=== PATIENT | female | born 1980 | race Caucasian/White ===

== ENCOUNTER → 2018-12-06 14:37 | Outpatient (CLI) | payer OTHER, SELFPAY ==
[2018-12-06 13:45] VITALS: BMI 29.9
[2018-12-06 15:07] LABS: Absolute Lymphocyte Count 2.24 X10^3/ul (0.83-4.51); Absolute Neutrophil Count 7.5 X10^3/uL (2.0-7.7); Basophil# 0.02 X10^3/uL; Basophil% 0.2 % (0-1); Eosinophil# 0.06 X10^3/uL; Eosinophils% 0.6 % (0-5); Hematocrit 36.3 % (37-47); Hemoglobin 11.8 g/dl (12.0-15.0); Lymphocyte # 2.24 X10^3/ul (4.0); Lymphocyte % 21.4 % (19-41); Mean Corp Hgb Conc 32.5 g/gl (32-36); Mean Corpuscular Hgb 28.5 pg (27.0-32.0); Mean Corpuscular Volume 87.7 fL (81-99); Monocyte# 0.64 X10^3/uL; Monocyte% 6.1 % (0-10); Neutrophil # 7.51 X10^3/uL (2.7-7.7); Neutrophil % 71.5 % (47-70); POSITIVE COUNT NO; POSITIVE DIFFERENTIAL NO; POSITIVE MORPHOLOGY NO; Platelet Count 330 K/mm3 (150-450); RBC Distribution Width CV 14.3 % (11.6-14.6); RBC Distribution Width SD 46.2 fl (35.1-43.9); Red Blood Count 4.14 M/mm3 (4.2-5.4); White Blood Count 10.5 K/mm3 (4.4-11.0)
[2018-12-06 15:34] LABS: AST(SGOT) 15 U/L (15-37); Alanine Aminotransfer ALT/SGPT 24 U/L (13-56); Albumin, Serum 3.7 g/dL (3.2-5.0); Alkaline Phosphatase 48 U/L (45-117); Anion Gap 9 (5-15); BUN 9 mg/dL (7-18); Calcium,Total 8.9 mg/dL (8.5-10.1); Chloride 107 mmol/L (98-107); EST Glomerular Filtration Rate 117 mL/min (>60); Est Glom Filt Rate - Afr Amer 142 mL/min (>60); Globulin 3.8 g/dL (2.2-4.2); Glucose 100 mg/dL (74-106); Potassium 3.5 mmol/L (3.5-5.1); Protein, Total 7.5 g/dL (6.4-8.2); Sodium Level 139 mmol/L (136-145)
[2018-12-06 16:20] LABS: HIV - WCH Non-Reactive (Nonreactive); Rubella IgG 35.3 IU/mL
[2018-12-06 21:56] LABS: Chlamydia Trachomatis by PCR Negative (Negative); Neisserai gonorrhoeae by PCR Negative (Negative); Probe Check PASS; Sample Adequacy Control PASS; Specimen Processing Control PASS
[2018-12-08 13:12] LABS: HEPATITIS B SURFACE AG Negative (Negative)
[2018-12-09 02:05] LABS: Rapid Plasmin Reagin (RPR) NONREACTIVE (NONREACTIVE)
[2018-12-10 16:59] LABS: HPV APTIMA, High Risk Negative (Negative)
== END ==
PROVIDERS: Referring Provider Obstetrics & Gynecology; Visit Provider Obstetrics & Gynecology
DX: O09.511 Supervision of elderly primigravida, first trimester (principal); O16.9 Unspecified maternal hypertension, unspecified trimester; Z3A.00 Weeks of gestation of pregnancy not specified; Z12.4 Encounter for screening for malignant neoplasm of cervix
CPT/HCPCS: 36415; 80053; 85025; 86592; 86703; 86762; 86850; 86900; 87086; 87088; 87340; 87491; 87591; 87624; 88175; G0145

== ENCOUNTER → 2018-12-12 17:02 | Outpatient (CLI) | payer OTHER, SELFPAY ==
[2018-12-12 16:31] VITALS: BMI 29.7
[2018-12-12 19:17] LABS: Protein, Urine (Random) 6.8 mg/dL (<11.9); Protein:Creat Ratio 75 mg/g CRE (0-200)
== END ==
PROVIDERS: Referring Provider Obstetrics & Gynecology; Visit Provider Obstetrics & Gynecology
DX: O16.1 Unspecified maternal hypertension, first trimester (principal); Z3A.00 Weeks of gestation of pregnancy not specified
CPT/HCPCS: 82570; 84156

== ENCOUNTER → 2019-01-06 09:14 | Outpatient (CLI) | payer OTHER, SELFPAY ==
[2018-12-06 13:45] VITALS: BMI 29.9
[2018-12-12 16:31] VITALS: BMI 29.7
--- NOTE | 2019-01-06 09:16 | US_ITS ---
STUDY: ULTRASOUND BREAST - RIGHT REASON FOR EXAM: Female, 38 years old. Palpable lump in the right breast. The patient is . TECHNIQUE: Axial and longitudinal images of the RIGHT breast were performed with a high resolution ultrasound transducer. COMPARISON: None. FINDINGS: RIGHT Breast: The upper outer quadrant of the right breast was examined. There is heterogeneous fibroglandular tissue. Mildly dilated retroareolar ducts. There is a 1 cm x 0.6 cm x 0.4 cm hypoechoic nodule with a central echogenic hilum suggestive of a benign lymph node at the 11:00 position in the breast at 4 cm from the nipple. US/Breast Limited Unilateral IMPRESSION: Findings suggestive of a small benign-appearing right axillary lymph node. ASSESSMENT CATEGORY: BIRADS Category 2: Benign. A letter regarding these results will be sent to the patient by the facility within 30 days. Electronically Signed: Pierce Wang, at 11:01 EDT , Service support ,
== END ==
PROVIDERS: Referring Provider Obstetrics & Gynecology; Visit Provider Obstetrics & Gynecology
DX: N63.11 Unspecified lump in the right breast, upper outer quadrant (principal)
CPT/HCPCS: 76642

== ENCOUNTER → 2019-04-21 15:15 | Outpatient (CLI) | payer MEDICAID, OTHER, SELFPAY ==
[2019-03-30 16:42] VITALS: BMI 29.7
[2019-04-21 14:25] VITALS: BMI 30.9
--- NOTE | 2019-04-21 15:28 | US_ITS ---
STUDY: SECOND AND THIRD TRIMESTER OBSTETRICAL ULTRASOUND - LIMITED REASON FOR EXAM: Female, 38 years old. Placenta check. Placenta was low-lying on anatomy scan. LMP: The provided ADAM of July 09, 2019. PRIOR ULTRASOUND: None. TECHNIQUE: Transabdominal and Transvaginal TECHNICAL QUALITY: Adequate. FINDINGS: There is a single intrauterine fetus. The fetus is in a variable presentation. There is demonstrated cardiac activity with a heart rate of 139 bpm. There is a normal amniotic fluid volume. The largest amniotic fluid pocket measures 3.61 cm. The amniotic fluid index (SHALONDA) is 9.41 cm. The placenta is fundal and posterior and not low-lying. The inferior end of the placenta lies 4.5 cm posterior to the internal os. There are Grade 0 placental changes. The cervix measures 4.3 cm cm in length. age by prior US: 20 weeks, 5 days. ADAM by prior US: July 09, 2019. US/OB Limited (No Biometrics) IMPRESSION: 1. Live single intrauterine in the variable presentation. 2. heart rate 139 bpm. 3. Fundal and posterior grade 0 placenta. The inferior edge of the placenta lies 4.5 cm away from the internal os. 4. Close cervix at 4.3 cm. 5. SHALONDA of 9.41 cm. Electronically Signed: Krystian Hanks DO at 19:23 EDT Tel [phone], Service support ,
[2019-04-21 15:39] LABS: Absolute Lymphocyte Count 1.97 X10^3/uL (0.83-4.51); Absolute Neutrophil Count 8.6 X10^3/uL (2.0-7.7); Basophil# 0.03 X10^3/uL; Basophil% 0.3 % (0-1); Eosinophil# 0.16 X10^3/uL; Eosinophils% 1.4 % (0-5); Hematocrit 32.3 % (37-47); Hemoglobin 10.1 g/dL (12.0-15.0); Lymphocyte # 1.97 X10^3/ul (4.0); Lymphocyte % 17.2 % (19-41); Mean Corp Hgb Conc 31.3 g/dL (32-36); Mean Corpuscular Hgb 28.1 pg (27.0-32.0); Mean Platelet Vol. 10.2 fl (6.2-12.0); Monocyte# 0.62 X10^3/uL; Monocyte% 5.4 % (0-10); NRBC Flagged by Analyzer 0 % (0-5); Neutrophil % 75.1 % (47-70); Platelet Count 311 K/mm3 (150-450); RBC Distribution Width CV 13.9 % (11.6-14.6); RBC Distribution Width SD 45.4 fl (35.1-43.9); Red Blood Count 3.59 M/mm3 (4.2-5.4); White Blood Count 11.5 K/mm3 (4.4-11.0)
[2019-04-21 15:50] LABS: Glucose Challenge Gest 1H 50g 146 mg/dL (70-140)
== END ==
PROVIDERS: Referring Provider Obstetrics & Gynecology; Visit Provider Obstetrics & Gynecology
DX: O09.90 Supervision of high risk pregnancy, unspecified, unspecified trimester (principal); O44.42 Low lying placenta NOS or without hemorrhage, second trimester; Z3A.00 Weeks of gestation of pregnancy not specified
CPT/HCPCS: 36415; 76815; 76817; 82950; 85025

== ENCOUNTER → 2019-04-28 09:38 | Outpatient (CLI) | payer MEDICAID, OTHER, SELFPAY ==
[2019-04-21 14:25] VITALS: BMI 30.9
[2019-04-28 10:42] LABS: Glucose GTT-Gestation. Fasting 87 mg/dL (<105)
[2019-04-28 11:32] LABS: Glucose GTT-Gestational 1 Hr 128 mg/dL (<190)
[2019-04-28 12:47] LABS: Glucose GTT-Gestational 2 Hr 173 mg/dL (<165)
[2019-04-28 13:30] LABS: Glucose GTT-Gestational 3 Hr 199 L (<145)
== END ==
PROVIDERS: Referring Provider Obstetrics & Gynecology; Visit Provider Obstetrics & Gynecology
DX: O99.810 Abnormal glucose complicating pregnancy (principal); Z3A.00 Weeks of gestation of pregnancy not specified
CPT/HCPCS: 36415; 82951; 82952

== ENCOUNTER 2019-05-18 17:30 | Outpatient (RCR) | payer OTHER, MEDICAID, SELFPAY ==
[2019-04-21 14:25] VITALS: BMI 30.9
== END 2019-05-20 23:59 ==
LOC: DC 17:30
PROVIDERS: Visit Provider Obstetrics & Gynecology
DX: O24.419 Gestational diabetes mellitus in pregnancy, unspecified control (principal)
CPT/HCPCS: 97802; G0108

== ENCOUNTER 2019-05-24 13:00 | Outpatient (RCR) | payer OTHER, MEDICAID, SELFPAY ==
[2019-05-19 15:54] VITALS: BMI 30.9
== END 2019-05-24 23:59 | disposition home or self-care (01) ==
LOC: DC 13:00
PROVIDERS: Visit Provider Obstetrics & Gynecology
DX: O24.419 Gestational diabetes mellitus in pregnancy, unspecified control (principal); Z71.3 Dietary counseling and surveillance; Z3A.00 Weeks of gestation of pregnancy not specified

== ENCOUNTER → 2019-06-15 13:48 | Outpatient (CLI) | payer OTHER, MEDICAID, SELFPAY ==
[2019-05-05 16:32] VITALS: BMI 30.9
[2019-06-01 16:40] VITALS: BMI 30.9
--- NOTE | 2019-06-15 13:50 | US_ITS ---
STUDY: SECOND AND THIRD TRIMESTER OBSTETRICAL ULTRASOUND REASON FOR EXAM: Female, 38 years old assess growth. LMP: 10/01/2018 TECHNIQUE: Transabdominal. TECHNICAL QUALITY: Adequate. PRIOR ULTRASOUND: None. FINDINGS: There is a single intrauterine fetus. The fetus is in a cephalic presentation. There is demonstrated cardiac activity with a heart rate of 157 bpm. There is a normal amniotic fluid volume. The largest amniotic fluid pocket measures 4.6 cm. The amniotic fluid index (SHALONDA) is 12.9 cm. The placenta is posterior, no evidence of abruption or previa. There are Grade 2 placental changes. The maternal cervix is not visible. BIOMETRY: BPD: 8.8 cm: 35 weeks, 4 days HC: 32.0 cm: 36 weeks, 0 days AC: 31.5 cm: 35 weeks, 2 days FL: 7.1 cm: 36 weeks, 1 days OFD 11.1 cm: 35 weeks 6 days CI: 79.5% FL/BPD: 80.3% FL/AC: 22.5% HC/AC: 1.02 age by current US: 35 weeks, 5 days. ADAM by current US: 07/15/2019. Estimated weight: 2773 grams, +/- 416 grams, 33.8 %. age by prior US: No prior ultrasound available. Age by LMP: 36 weeks, 4 days. ADAM by LMP: 07/15/2019. ANATOMY: anatomic survey not performed. US/OB Limited With Biometrics IMPRESSION: Single intrauterine as above. No acute findings. Electronically Signed: Harvey Guadarrama, at 22:31 EDT Tel , Service support ,
== END ==
PROVIDERS: Referring Provider Obstetrics & Gynecology; Visit Provider Obstetrics & Gynecology
DX: O09.90 Supervision of high risk pregnancy, unspecified, unspecified trimester (principal); Z3A.00 Weeks of gestation of pregnancy not specified
CPT/HCPCS: 76816

== ENCOUNTER → 2019-06-16 16:42 | Outpatient (CLI) | payer OTHER, MEDICAID, SELFPAY ==
[2019-06-16 15:16] VITALS: BMI 30.9
== END ==
PROVIDERS: Referring Provider Obstetrics & Gynecology; Visit Provider Obstetrics & Gynecology
DX: Z36.85 Encounter for antenatal screening for Streptococcus B (principal)
CPT/HCPCS: 87081

== ENCOUNTER → 2019-06-29 16:49 | Outpatient (CLI) | payer OTHER, MEDICAID, SELFPAY ==
[2019-06-29 15:45] VITALS: BMI 30.9
[2019-06-29 17:09] LABS: Absolute Lymphocyte Count 2.07 X10^3/uL (0.83-4.51); Absolute Neutrophil Count 6.3 X10^3/uL (2.0-7.7); Basophil# 0.03 X10^3/uL; Basophil% 0.3 % (0-1); Eosinophil# 0.23 X10^3/uL; Eosinophils% 2.5 % (0-5); Hematocrit 34.7 % (37-47); Hemoglobin 10.4 g/dL (12.0-15.0); Lymphocyte # 2.07 X10^3/ul (4.0); Lymphocyte % 22.3 % (19-41); Mean Corpuscular Hgb 25.4 pg (27.0-32.0); Mean Corpuscular Volume 84.8 fL (81-99); Mean Platelet Vol. 11.2 fl (6.2-12.0); Monocyte# 0.65 X10^3/uL; NRBC Flagged by Analyzer 0 % (0-5); Neutrophil # 6.26 X10^3/uL (2.7-7.7); Neutrophil % 67.5 % (47-70); Platelet Count 297 K/mm3 (150-450); RBC Distribution Width CV 14.9 % (11.6-14.6); RBC Distribution Width SD 45.8 fl (35.1-43.9); Red Blood Count 4.09 M/mm3 (4.2-5.4); White Blood Count 9.3 K/mm3 (4.4-11.0)
[2019-06-29 17:22] LABS: Protein, Urine (Random) 8.8 mg/dL (<11.9); Protein:Creat Ratio 289 mg/g CRE (0-200)
[2019-06-29 17:54] LABS: ALB/GLOB Ratio 0.7 RATIO (0.9-2.4); AST(SGOT) 13 U/L (15-37); Alanine Aminotransfer ALT/SGPT 15 U/L (13-56); Albumin, Serum 2.7 g/dL (3.2-5.0); Alkaline Phosphatase 230 U/L (45-117); Anion Gap 7 (5-15); BUN 9 mg/dL (7-18); BUN/Creat Ratio 14.3 RATIO (10-20); Calcium,Total 9.2 mg/dL (8.5-10.1); Chloride 109 mmol/L (98-107); Creatinine, Serum 0.63 mg/dL (0.55-1.02); EST Glomerular Filtration Rate 111 mL/min (>60); Est Glom Filt Rate - Afr Amer 134 mL/min (>60); Globulin 4.1 g/dL (2.2-4.2); Glucose 90 mg/dL (74-106); Potassium 3.8 mmol/L (3.5-5.1); Protein, Total 6.8 g/dL (6.4-8.2); Sodium Level 140 mmol/L (136-145)
== END ==
PROVIDERS: Referring Provider Obstetrics & Gynecology; Visit Provider Obstetrics & Gynecology
DX: O16.3 Unspecified maternal hypertension, third trimester (principal)
CPT/HCPCS: 36415; 80053; 82570; 84156; 85025

== ENCOUNTER → 2019-07-05 10:15 | Outpatient (CLI) | payer OTHER, MEDICAID, SELFPAY ==
[2019-07-04 08:12] VITALS: BMI 31.6
--- NOTE | 2019-07-05 10:17 | US_ITS ---
STUDY: SECOND AND THIRD TRIMESTER OBSTETRICAL ULTRASOUND REASON FOR EXAM: Female, 38 years old growth. LMP: October 02, 2018. TECHNIQUE: Transabdominal TECHNICAL QUALITY: Adequate. PRIOR ULTRASOUND: Comparison is made with prior examination dated June 15, 2019. FINDINGS: There is a single intrauterine fetus. The fetus is in a cephalic presentation. There is demonstrated cardiac activity with a heart rate of 146 bpm. There is a normal amniotic fluid volume. The largest amniotic fluid pocket measures 3.8 cm. The amniotic fluid index (SHALONDA) is 9.4 cm. The placenta is posterior and fundal in location and is not low lying. There are Grade 2 placental changes. The bilateral adnexal regions are normal. BIOMETRY: BPD: 9.5 cm: 39 weeks, 0 days HC: 34.5 cm: 40 weeks, 0 days AC: 34.5 cm: 38 weeks, 3 days FL: 7.6 cm: 38 weeks, 6 days CI: 84% FL/BPD: 80% FL/HC: FL/AC: 22% HC/AC: 1.0 age by current US: 39 weeks, 1 days. ADAM by current US: July 11, 2019. Estimated weight: 3577 grams, +/- 5.2 grams, 56 %. age by prior US: 38 weeks, 4 days. ADAM by prior US: July 15, 2019. Age by LMP: 39 weeks, 3 days. ADAM by LMP: July 09, 2019. US/OB Limited With Biometrics IMPRESSION: Single live intrauterine gestation with images to show age of 38 weeks and 4 days. The measurements obtained today fall within the normal expected range. Electronically Signed: Pierce Wang, at 14:09 EDT , Service support ,
--- NOTE | 2019-07-05 10:17 | US_ITS ---
STUDY: OBSTETRICAL ULTRASOUND - BIOPHYSICAL PROFILE REASON FOR EXAM: Female, 38 years old well-being. LMP: October 01, 2018. PRIOR ULTRASOUND: Comparison is made with prior study June 15, 2019 TECHNIQUE: Transabdominal TECHNICAL QUALITY: Adequate. FINDINGS: There is a single intrauterine fetus. The fetus is in a cephalic presentation. There is demonstrated cardiac activity with a heart rate of 149 bpm. There is a normal amniotic fluid volume. The largest amniotic fluid pocket measures 4 cm. The amniotic fluid index (SHALONDA) is 9.8 cm. The placenta is posterior and fundal in location and is not low lying. There are Grade 2 placental changes. Age by LMP: 39 weeks, 3 days. ADAM by LMP: July 09, 2019. age by prior US: 38 weeks, 4 days. ADAM by prior US: July 15, 2019. BIOPHYSICAL PROFILE: Breathing Movements (FBM): 2 Gross Body Movements (GBM): 2 Tone (FT): 2 Amniotic Fluid Volume (AFV): 2 TOTAL SCORE: US/Biophysical Profile IMPRESSION: Normal biophysical profile of 04/27. Electronically Signed: Pierce Wang, at 14:05 EDT , Service support ,
[2019-07-05 12:29] LABS: Protein, Urine (Random) < 6.0 mg/dL (<11.9); Protein:Creat Ratio 174 mg/g CRE (0-200)
[2019-07-05 13:03] LABS: Absolute Neutrophil Count 5.6 X10^3/uL (2.0-7.7); Basophil# 0.03 X10^3/uL; Basophil% 0.4 % (0-1); Eosinophil# 0.33 X10^3/uL; Eosinophils% 4.1 % (0-5); Hematocrit 33.6 % (37-47); Hemoglobin 10.3 g/dL (12.0-15.0); Lymphocyte % 19.7 % (19-41); Mean Corp Hgb Conc 30.7 g/dL (32-36); Mean Corpuscular Hgb 26.1 pg (27.0-32.0); Mean Corpuscular Volume 85.3 fL (81-99); Mean Platelet Vol. 11.5 fl (6.2-12.0); Monocyte# 0.58 X10^3/uL; Monocyte% 7.2 % (0-10); NRBC Flagged by Analyzer 0 % (0-5); Neutrophil # 5.55 X10^3/uL (2.7-7.7); Neutrophil % 68.4 % (47-70); Platelet Count 275 K/mm3 (150-450); RBC Distribution Width CV 15.3 % (11.6-14.6); RBC Distribution Width SD 46.9 fl (35.1-43.9); Red Blood Count 3.94 M/mm3 (4.2-5.4); White Blood Count 8.1 K/mm3 (4.4-11.0)
[2019-07-05 13:17] LABS: BUN 12 mg/dL (7-18); Creatinine, Serum 0.65 mg/dL (0.55-1.02); Glucose 88 mg/dL (74-106)
[2019-07-05 13:18] LABS: ALB/GLOB Ratio 0.6 RATIO (0.9-2.4); AST(SGOT) 13 U/L (15-37); Alanine Aminotransfer ALT/SGPT 15 U/L (13-56); Albumin, Serum 2.5 g/dL (3.2-5.0); Alkaline Phosphatase 221 U/L (45-117); Anion Gap 9 (5-15); BUN/Creat Ratio 18.6 RATIO (10-20); Calcium,Total 9.2 mg/dL (8.5-10.1); Chloride 108 mmol/L (98-107); EST Glomerular Filtration Rate 108 mL/min (>60); Est Glom Filt Rate - Afr Amer 130 mL/min (>60); Potassium 4.2 mmol/L (3.5-5.1); Protein, Total 6.5 g/dL (6.4-8.2); Sodium Level 140 mmol/L (136-145)
== END ==
PROVIDERS: Nurse Practitioner Women's Health; Referring Provider Obstetrics & Gynecology; Visit Provider Obstetrics & Gynecology
DX: O24.410 Gestational diabetes mellitus in pregnancy, diet controlled (principal); Z3A.00 Weeks of gestation of pregnancy not specified
CPT/HCPCS: 36415; 76816; 76818; 80053; 82570; 84156; 85025

== ENCOUNTER 2019-07-08 05:20 | Inpatient (IN) | payer OTHER, MEDICAID, SELFPAY ==
[2019-07-07 13:00] VITALS: BMI 31.6
[2019-07-08 05:11] VITALS: BMI 31.6
[2019-07-08 05:19] LABS: ROM Internal Control Test YES-OK TO RESULT pt. (Internal QC)
[2019-07-08 05:20] LABS: ROM Patient Test POSITIVE (Negative)
[2019-07-08 05:21] LABS: Record Kit Lot#, ROM+ J8255
[2019-07-08] MEDS: Lactated Ringers 1,000 ML 50 ML IV (05:50)
[2019-07-08 05:59] LABS: Absolute Lymphocyte Count 2.04 X10^3/uL (0.83-4.51); Absolute Neutrophil Count 6.4 X10^3/uL (2.0-7.7); Basophil# 0.03 X10^3/uL; Basophil% 0.3 % (0-1); Eosinophil# 0.28 X10^3/uL; Hematocrit 34.1 % (37-47); Hemoglobin 10.5 g/dL (12.0-15.0); Lymphocyte # 2.04 X10^3/ul (4.0); Lymphocyte % 21.6 % (19-41); Mean Corp Hgb Conc 30.8 g/dL (32-36); Mean Corpuscular Hgb 25.9 pg (27.0-32.0); Mean Platelet Vol. 11.3 fl (6.2-12.0); Monocyte# 0.63 X10^3/uL; Monocyte% 6.7 % (0-10); NRBC Flagged by Analyzer 0 % (0-5); Neutrophil # 6.42 X10^3/uL (2.7-7.7); Platelet Count 278 K/mm3 (150-450); RBC Distribution Width CV 15.2 % (11.6-14.6); RBC Distribution Width SD 46.7 fl (35.1-43.9); Red Blood Count 4.06 M/mm3 (4.2-5.4); White Blood Count 9.4 K/mm3 (4.4-11.0)
[2019-07-08 06:01] LABS: Bedside Glucose 90 mg/dL (70-110)
[2019-07-08] MEDS: Lactated Ringers 500 ML 999 ML IV ×2 (06:56→09:12)
--- NOTE | 2019-07-08 06:59 | PCM.HP.OB ---
History Date of Admission: 07/08/19 Final ADAM: 07/09/19 Final ADAM Source: US <20 weeks Gestational age: 39 Weeks and 6 Days History of this : This is a 39 year-old, G [1], P 0],at 39w6d by [id number] who presents to L&D c/o SROM since 329; she reports active FM, denies VB; she has a current history of gestational diabetes that is diet controlled; Allergies codeine Allergy (Mild, Verified 07/08/19 05:15) Other Home Medications: Home Medications acetaminophen 325 mg capsule 325 mg PO Q6H PRN 12/06/18 vitamin#30 30 mg iron-10 mg iron-folic acid 1 mg-omg3 capsule 1 cap PO DAILY cap 12/06/18 Smoking Status: Never smoker Alcohol: None Number of Fetus(es): 1 NST - FHR Rate Baby A Baseline: 145 Variability:: Moderate - 145 Accelerations:: 15 x 15 Decelerations:: None NST Reactive:: Yes, Appropriate for gestational age FHR Category:: Category I Uterine Activity:: Q 2-5 minutes History Past Pregnancies: Past Pregnancies Delivery Date Name GA/Weeks Outcome Route Weight Infant Gender Labor Length Anesthesia Delivery Location Provider FOB Labs: Initial PN labs WNL, serologies negative, see hospital records. Expected Delivery Method: Spontaneous Vaginal Describe any other labor & delivery plans:: Diabetic protocol in labor; pitocin augmentatio for PROM Review of Systems Constitutional: Denies: Anorexia, Chills, Fever, Night Sweats, Malaise, Weakness, Weight Change, Fatigue Eyes: Denies: Blurred vision, Cataracts, Conjunctivae Inflammation, Double vision, Drainage, Eyelid Inflammation, Pain, Redness, Vision Change HEENT: Denies: Difficulty Hearing, Difficulty Swallowing, Dysphasia, Ear Pain, Eye Pain, Hard of Hearing, Head Aches, Hearing Changes, Nasal bleeding, Nasal Congestion, Post Nasal Drip, Sinus Congestion, Sinus Drainage, Sore Throat, Visual Changes Cardiovascular: Denies: Chest Pain, Claudication, Chest Pressure, Chest Tightness, Edema, Heaviness, Light Headedness, Orthopnea, Palpitations, Paroxysmal Noc. Dyspnea, Syncope Respiratory: Denies: Cough, Hemoptysis, Pleuritic Pain, Shortness of Breath, Shortness of breath at rest, Shortness of breath upon exertion, Sputum production, Wheezing Gastrointestinal: Denies: Abdominal Pain, Constipation, Diarrhea, Dyspepsia, Hematemesis, Hematochezia, Nausea, Melena, Vomiting Genitourinary: Denies: Dysuria, Frequency, Hematuria, Hesitancy, Incontinence, Nocturia, Retention, Urgency Gynecological: Denies: Breast symptoms, Excessively long or heavy periods, Sexual concerns, Vaginal bleeding, Vaginal discharge, Vaginal itching Musculoskeletal: Denies: Arm Pain, Back Pain, Foot Pain, Hand Pain, Joint Pain, Joint stiffness, Joint swelling, Joint Tenderness, Leg Pain, Muscle pain, Neck Pain, Shoulder Pain Skin: Denies: Dryness, Jaundice, Lesions, Pruritis, Rash, Skin Changes, Wounds Neurological: Denies: Balance problems, Blurred vision, Double vision, Change in Speech, Slurred speech, Confusion, Difficulty swallowing, Focal weakness, Headaches, Incoordination, Numbness, Tingling, Tremor, Seizures Psychiatric: Denies: Anxiety, Depression, Homicidal Ideations, Suicidal Ideations Endocrine: Denies: Change in Body Habitus, Heat/ Cold Intolerance, Polydipsia, Polyuria, Hx of Irradiation, Hx of Thyroiditis Hematologic/ Lymphatic: Denies: Adenopathy, Anemia, Easy Bruising, Petechiae, Purpura, Hx of blood clot Physical Exam General: Alert, Oriented x3, Cooperative, No apparent distress HEENT: Atraumatic, PERRLA, EOMI Cardiovascular: Regular rate, Regular Rhythm Lungs: Clear to auscultation, Normal air movement Abdomen: Bowel Sounds Present, Soft, Non Tender, Non-Distended, Passing Flatus, Gravid Neurological: Negative for: Cranial nerves II-XII grossly intact, Deep Tendon Reflexes 2+/4 and Symmetrical Presentation: Cephalic - Verified by bedside US Cervix Dilation (cm): 1 Station: -3 Effacement (%): 50 Assessment/Plan All Active Problems (Last Reviewed 07/07/19 @ 13:00 by Marleni Luke) Influenza vaccination declined (Acute) Gestational diabetes (Acute) Advanced maternal age (AMA) in (Acute) (Acute) Supervision of high risk , antepartum (Acute) Low lying placenta nos or without hemorrhage, second trimester (Resolved) Assessment: 39 year-old, at 396w6d gest by L=19w4d US AMA Gestational diabetic, diet controlled Group B negative Mild anemia Plan: Admit to L&D Continuous EFM Check Blood sugars per Diabetic Patient Nurse Worksheet, inform provider if outside normal range Begin pitocin per unit protocol
[2019-07-08 07:00] LABS: Bedside Glucose 92 mg/dL (70-110)
[2019-07-08] MEDS: fentaNYL-bupivacaine (epidural) 100 ML BAG EPIDURAL ×2 (07:56→12:07)
[2019-07-08] MEDS: Oxytocin 30 units/NS 500 ml 30 UNITS/500 ML IV.SOLN IV (08:00)
[2019-07-08] MEDS: Ondansetron 4 MG/2 ML Vial IV (08:57)
--- NOTE | 2019-07-08 09:58 | PN.OBGYN_ITS ---
Subjective: Pain well controlled with epidural, but feeling nausea, vomiting Objective: AVSS FHTs:145 baseline, mod variability with accels; prolonged variable beginning at 0900 down to 90bpm, back to baseline over 5 minutes, mod variability maintained UCs:Q 2-3 Cervix:4/80/-1 Pitocin: to off from 4 mu; plan to restart in 1/2 hour if FHR sable - Physical Exam General: Alert, Oriented x3, Cooperative, No apparent distress HEENT: PERRLA, EOMI Oral: Moist Mucosa Neck: Supple Neurological: Cranial nerves II-XII grossly intact Psych/Mental Status: Normal Affect, Appropriate, Alert and oriented to time, place, person, mood and affect Weight: 172 lb 9.6 oz Body Mass Index (BMI) 31.6 Intake and Output for Last 24 Hours 07/06/19 07/07/19 07/08/19 23:59 23:59 23:59 Intake Total 896.03 / 896.03 Balance 896.03 / 896.03 Laboratory Tests Past 24 Hrs 07/08/19 07/08/19 07/08/19 04:45 05:50 05:50 WBC 9.4 RBC 4.06 L Hgb 10.5 L Hct 34.1 L MCV 84.0 MCH 25.9 L MCHC 30.8 L RDW Std Deviation 46.7 H RDW Coeff of Maci 15.2 H Plt Count 278 MPV 11.3 Immature Gran % (Auto) 0.400 Neut % (Auto) 68.0 Lymph % (Auto) 21.6 [place] % (Auto) 6.7 Eos % (Auto) 3.0 Baso % (Auto) 0.3 Absolute Neuts (auto) 6.4 Absolute Lymphs (auto) 2.04 Nucleated RBC % 0 Vag Amniotic Fld Detect POSITIVE H Blood Type A POSITIVE Antibody Screen NEGATIVE POC Glucose 07/08/19 07/08/19 06:53 05:56 POC Glucose 92 90 Medical Necessity - Tobacco Use Smoking Status: Never smoker Assessment/Plan All Active Problems (Last Reviewed 07/07/19 @ 13:00 by Marleni Luke) Influenza vaccination declined (Acute) Gestational diabetes (Acute) Advanced maternal age (AMA) in (Acute) (Acute) Supervision of high risk , antepartum (Acute) Low lying placenta nos or without hemorrhage, second trimester (Resolved) Assessment: 39 year-old, at 396w6d gest by L=19w4s US Active labor AMA Gestational diabetic, diet controlled Group B negative Mild anemia Cat 2 FHTs Plan: Trial of labor without pitocin; restart pitocin with internal monitors if inadequate contraction pattern Continuous EFM Frequent position changes, peanut ball, etc. Check Blood sugars per Diabetic Patient Nurse Worksheet, inform provider if outside normal range Anticipate vaginal delivery
[2019-07-08 11:10] LABS: Bedside Glucose 89 mg/dL (70-110)
--- NOTE | 2019-07-08 12:58 | PCM.PN.OB ---
Subjective: Good pain control with epidural, still experiencing N/V post ordered dose of Zofran Objective: AVSS,BG in 80s/90s FHTs: 125baseline mod variability, with accels; decels noted when pt experiences episode of vomiting UCs: Q 2-3 Pitat 2 mu Cervix /-1 per RN - Physical Exam General: Alert, Oriented x3, Cooperative Neck: Supple Neurological: Cranial nerves II-XII grossly intact Psych/Mental Status: Normal Affect, Flat Affect, Alert and oriented to time, place, person, mood and affect Weight: 172 lb 9.6 oz Body Mass Index (BMI) 31.6 Intake and Output for Last 24 Hours 07/06/19 07/07/19 07/08/19 23:59 23:59 23:59 Intake Total 1398.76 / 1398.76 Balance 1398.76 / 1398.76 Laboratory Tests Past 24 Hrs 07/08/19 07/08/19 07/08/19 04:45 05:50 05:50 WBC 9.4 RBC 4.06 L Hgb 10.5 L Hct 34.1 L MCV 84.0 MCH 25.9 L MCHC 30.8 L RDW Std Deviation 46.7 H RDW Coeff of Maci 15.2 H Plt Count 278 MPV 11.3 Immature Gran % (Auto) 0.400 Neut % (Auto) 68.0 Lymph % (Auto) 21.6 [place] % (Auto) 6.7 Eos % (Auto) 3.0 Baso % (Auto) 0.3 Absolute Neuts (auto) 6.4 Absolute Lymphs (auto) 2.04 Nucleated RBC % 0 Vag Amniotic Fld Detect POSITIVE H Blood Type A POSITIVE Antibody Screen NEGATIVE POC Glucose 07/08/19 07/08/19 07/08/19 11:01 06:53 05:56 POC Glucose 89 92 90 Medical Necessity - Tobacco Use Smoking Status: Never smoker Assessment/Plan All Active Problems (Last Reviewed 07/07/19 @ 13:00 by Marleni Luke) Influenza vaccination declined (Acute) Gestational diabetes (Acute) Advanced maternal age (AMA) in (Acute) (Acute) Supervision of high risk , antepartum (Acute) Low lying placenta nos or without hemorrhage, second trimester (Resolved) Assessment: 39 year-old, at 396w6d gest by L=19w4s US Active labor AMA Gestational diabetic, diet controlled Group B negative Mild anemia Cat 2 FHTs Plan: Continue pitocin to maintain adequate contraction pattern Continuous EFM Frequent position changes, peanut ball, etc.; comfort measures for nausea Check Blood sugars per Diabetic Patient Nurse Worksheet, inform provider if outside normal range Anticipate vaginal delivery
[2019-07-08 13:15] LABS: Bedside Glucose 93 mg/dL (70-110)
[2019-07-08] MEDS: Lactated Ringers 1,000 ML 200 ML IV (14:12)
[2019-07-08 14:16] LABS: Bedside Glucose 93 mg/dL (70-110)
[2019-07-08 15:11] LABS: Bedside Glucose 91 mg/dL (70-110)
[2019-07-08] MEDS: Oxytocin 30 units/NS 500 ml 30 UNITS/500 ML IV.SOLN 334 UNITS IV (16:29)
--- NOTE | 2019-07-08 17:07 | PCM.OPRPT ---
Vaginal Delivery Maternal Presentation: Spontaneous Rupture of Membranes Method of Induction: Pitocin Amniotic Membrane Rupture Type: Spontaneous at home Rupture of Membrane time: 0330 Amniotic Fluid Description: Clear Final ADAM: 07/09/19 Final ADAM Source: US <20 weeks Gestational age: 39 Weeks and 6 Days Date of Procedure: 07/08/19 Pre-Operative Diagnosis: 39 yo at 39w6d gestation PROM Post-Operative Diagnosis: Surgery/ Procedure Performed: Spontaneous Vaginal Delivery Type of Anesthesia: Epidural Description of Procedure: Pushed with slow progress, delivered a viable male OA to BETTY, shoulders followed quickly with maternal effort. placed on maternal abdomen, dried, stimulated, bulb-suctioned by nursery RN, APGARS 8/9; cord clamped x 2 and cut by FOB; placenta delivered spontaneously, Dhiraj mechanism, 3-vessel cord, marginal insertion; first degree vaginal-perineal laceration repaired with 3-O Vicryl, good hemostasis obtained; a small R labial abrasion was hemostatic and did not need repair; EBL 400ml Lap sponge, Raytec and instrument count correct x 2 with RN Presentation: Vertex, BETTY Placental Delivery Description: Spontaneous Placenta Disposition: [facility] Cord Vessel Description: 3 Vessels Cord Entanglement: None Estimated Blood Loss: 400 Infant A gender: Male (1 minute): 8 (5 minute): 9 Episiotomy Description: None Laceration: Midline, Perineal Extension/lac, 1st degree Medications given after delivery: IV Pitocin
--- NOTE | 2019-07-08 17:20 | DCINST_ITS ---
Discharge Diet: No Restrictions Discharge Activity: Return to Normal Activity, May Drive, May Shower, May Take a Tub Bath Return to work on:: 08/21/19 May resume sexual activity in: 6-8 weeks Weight Bearing Status: Weight bearing as tolerated Lifting Restrictions: Nothing heavier than the baby for two weeks Additional Activity Instructions:: No cooking, cleaning, shopping or long car rides for two weeks; 12 hours sleep daily for two weeks Additional Instructions: If you experience any of the following, contact your healthcare provider. * Bleeding that soaks a pad every hour for 2 hours * Fever 100.4 or higher * Unrelieved incision or abdominal pain * Swelling, redness, discharge or bleeding from your incision or episiotomy site * Your incision begins to separate * Problems urinating (including inability to urinate or burning while urinating). * Visual changes * Severe headache * Flu-like symptoms * Pain or redness in one of both of your breasts * Pain, warmth, tenderness or swelling in your legs, especially the calf area * Frequent nausea and vomiting * Symptoms of depression or anxiety If you experience any of the following, call 911 or go to the nearest Emergency Room. * Chest pain * Problems breathing * Seizure activity * Partial or complete paralysis of a body part, slurred speech, weakness or drooping of the face, or a sudden inability to walk or hold your balance Allergies/Adverse Reactions: Allergies codeine Allergy (Mild, Verified 07/08/19 05:15) Other Medications to take at Discharge acetaminophen 325 mg capsule 325 mg PO Q6H PRN 12/06/18 vitamin#30 30 mg iron-10 mg iron-folic acid 1 mg-omg3 capsule 1 cap PO DAILY cap 12/06/18 Please Follow Up With: Pili Nuñez MD When: 6 weeks for checkup Primary Care Physician: Care Physician,No Primary [Primary Care Provider] - Test Results: Test results from this visit will be discussed in further detail at your follow- up appointment, if applicable.
[2019-07-08 19:29] VITALS: BP 121/74; PULSE 93; RESP 18; TEMP 36.8; O2SAT 97
[2019-07-08] MEDS: Acetaminophen 500 MG Tablet 1000 MG PO (20:31)
[2019-07-08 23:40] VITALS: BP 121/65; PULSE 89; RESP 18; TEMP 37.4
[2019-07-09] MEDS: Hydrocortisone 2.5% Crm 1 APPLIC TOPICAL (02:53)
[2019-07-09 05:20] VITALS: BP 114/70; PULSE 68; RESP 18; TEMP 37.6
[2019-07-09 05:26] LABS: Bedside Glucose 96 mg/dL (70-110)
[2019-07-09 05:55] LABS: Hematocrit 26.4 % (37-47); Mean Corp Hgb Conc 30.3 g/dL (32-36); Mean Corpuscular Hgb 25.3 pg (27.0-32.0); Mean Corpuscular Volume 83.5 fL (81-99); Mean Platelet Vol. 11.4 fl (6.2-12.0); Platelet Count 219 K/mm3 (150-450); RBC Distribution Width CV 15.3 % (11.6-14.6); RBC Distribution Width SD 46.8 fl (35.1-43.9); Red Blood Count 3.16 M/mm3 (4.2-5.4); White Blood Count 12.2 K/mm3 (4.4-11.0)
[2019-07-09 08:30] VITALS: BP 137/82; PULSE 68; RESP 14; TEMP 36.8
--- NOTE | 2019-07-09 09:15 | PCM.PN.OB ---
Subjective: doing well no complaints pain controlled no CP SOB N V ambulating well tolerating po lochia moderate, going well - Physical Exam General: Alert, Oriented x3 Abdomen: Soft, Non Tender, Non-Distended, - - FF below U Vital Signs Temp Pulse Resp BP Pulse Ox 99.7 F H 68 18 114/70 97 07/09/19 05:20 07/09/19 05:20 07/09/19 05:20 07/09/19 05:20 07/08/19 19:29 Oxygen Delivery Method Room Air Weight: 172 lb 9.6 oz Body Mass Index (BMI) 31.6 Intake and Output for Last 24 Hours 07/07/19 07/08/19 07/09/19 23:59 23:59 23:59 Intake Total 2975.73 / 2975.73 Output Total 400 / 400 Balance 2575.73 / 2575.73 Laboratory Tests Past 24 Hrs 07/09/19 05:20 WBC 12.2 H RBC 3.16 L Hgb 8.0 L Hct 26.4 L MCV 83.5 MCH 25.3 L MCHC 30.3 L RDW Std Deviation 46.8 H RDW Coeff of Maci 15.3 H Plt Count 219 MPV 11.4 POC Glucose 07/09/19 07/08/19 07/08/19 05:10 15:08 14:11 POC Glucose 96 91 93 07/08/19 07/08/19 13:06 11:01 POC Glucose 93 89 Medical Necessity - Tobacco Use Smoking Status: Never smoker Assessment/Plan All Active Problems (Last Reviewed 07/07/19 @ 13:00 by Marleni Luke) Influenza vaccination declined (Acute) Gestational diabetes (Acute) Advanced maternal age (AMA) in (Acute) (Acute) Supervision of high risk , antepartum (Acute) Low lying placenta nos or without hemorrhage, second trimester (Resolved) s/p PPD # 1 1. routine post delivery care 2. breast feeding- support given 3. rh positive 4. rubella immune 5. Anemia-repeat CBC 12 hour
[2019-07-09] MEDS: Senna/Docusate Sodium 1 Tablet PO (09:24)
[2019-07-09] MEDS: Dibucaine 30 GM Tube 1 APPLIC TOPICAL (09:25)
[2019-07-09] MEDS: Ibuprofen 600 MG Tablet PO ×2 (10:36→16:51)
[2019-07-09 12:45] VITALS: BP 134/81; PULSE 91; RESP 16; TEMP 36.9
[2019-07-09 15:40] VITALS: BP 129/84; PULSE 80; RESP 14; TEMP 36.4
[2019-07-09 18:22] LABS: Hematocrit 28.5 % (37-47); Hemoglobin 8.6 g/dL (12.0-15.0); Mean Corp Hgb Conc 30.2 g/dL (32-36); Mean Corpuscular Hgb 25.4 pg (27.0-32.0); Mean Corpuscular Volume 84.3 fL (81-99); Mean Platelet Vol. 10.9 fl (6.2-12.0); Platelet Count 244 K/mm3 (150-450); RBC Distribution Width CV 15.3 % (11.6-14.6); RBC Distribution Width SD 46.1 fl (35.1-43.9); Red Blood Count 3.38 M/mm3 (4.2-5.4); White Blood Count 13.1 K/mm3 (4.4-11.0)
[2019-07-09 20:14] VITALS: BP 119/76; PULSE 95; RESP 18; TEMP 36.9
[2019-07-10 02:10] VITALS: BP 112/74; PULSE 92; RESP 15; TEMP 37.3
[2019-07-10] MEDS: Ibuprofen 600 MG Tablet PO ×2 (04:09→09:57)
--- NOTE | 2019-07-10 07:51 | PCM.PN.OB ---
Subjective: doing well no complaints pain controlled no CP SOB N V ambulating well tolerating po lochia moderate, going well - Physical Exam General: Alert, Oriented x3 Abdomen: Soft, Non Tender, Non-Distended, - - FF below U Vital Signs Temp Pulse Resp BP Pulse Ox 99.1 F 92 15 112/74 97 07/10/19 02:10 07/10/19 02:10 07/10/19 02:10 07/10/19 02:10 07/08/19 19:29 Oxygen Delivery Method Room Air Weight: 172 lb 9.6 oz Body Mass Index (BMI) 31.6 Intake and Output for Last 24 Hours 07/08/19 07/09/19 07/10/19 23:59 23:59 23:59 Intake Total 2975.73 / 2975.73 Output Total 400 / 400 Balance 2575.73 / 2575.73 Laboratory Tests Past 24 Hrs 07/09/19 18:15 WBC 13.1 H RBC 3.38 L Hgb 8.6 L Hct 28.5 L MCV 84.3 MCH 25.4 L MCHC 30.2 L RDW Std Deviation 46.1 H RDW Coeff of Maci 15.3 H Plt Count 244 MPV 10.9 Medical Necessity - Tobacco Use Smoking Status: Never smoker Assessment/Plan All Active Problems (Last Reviewed 07/07/19 @ 13:00 by Marleni Luke) Influenza vaccination declined (Acute) Gestational diabetes (Acute) Advanced maternal age (AMA) in (Acute) (Acute) Supervision of high risk , antepartum (Acute) Low lying placenta nos or without hemorrhage, second trimester (Resolved) s/p PPD # 2 1. routine post delivery care 2. breast feeding- support given 3. rh positive 4. rubella immune 5. home today
--- NOTE | 2019-07-10 07:53 | DCINST_ITS ---
Discharge Diet: No Restrictions Discharge Activity: Return to Normal Activity, May Drive, May Shower, May Take a Tub Bath Return to work on:: 08/21/19 May resume sexual activity in: 6-8 weeks Weight Bearing Status: Weight bearing as tolerated Additional Activity Instructions:: No cooking, cleaning, shopping or long car rides for two weeks; 12 hours sleep daily for two weeks Additional Instructions: If you experience any of the following, contact your healthcare provider. * Bleeding that soaks a pad every hour for 2 hours * Fever 100.4 or higher * Unrelieved incision or abdominal pain * Swelling, redness, discharge or bleeding from your incision or episiotomy site * Your incision begins to separate * Problems urinating (including inability to urinate or burning while urinating). * Visual changes * Severe headache * Flu-like symptoms * Pain or redness in one of both of your breasts * Pain, warmth, tenderness or swelling in your legs, especially the calf area * Frequent nausea and vomiting * Symptoms of depression or anxiety If you experience any of the following, call 911 or go to the nearest Emergency Room. * Chest pain * Problems breathing * Seizure activity * Partial or complete paralysis of a body part, slurred speech, weakness or drooping of the face, or a sudden inability to walk or hold your balance Allergies/Adverse Reactions: Allergies codeine Allergy (Mild, Verified 07/08/19 05:15) Other Medications to take at Discharge acetaminophen 325 mg capsule 325 mg PO Q6H PRN 12/06/18 vitamin#30 30 mg iron-10 mg iron-folic acid 1 mg-omg3 capsule 1 cap PO DAILY cap 12/06/18 Primary Care Physician: Care Physician,No Primary [Primary Care Provider] - Test Results: Test results from this visit will be discussed in further detail at your follow- up appointment, if applicable.
--- NOTE | 2019-07-10 07:53 | PCM.DCVAG ---
Discharge Diet: No Restrictions Discharge Activity: Return to Normal Activity, May Drive, May Shower, May Take a Tub Bath Return to work on:: 08/21/19 May resume sexual activity in: 6-8 weeks Weight Bearing Status: Weight bearing as tolerated Additional Activity Instructions:: No cooking, cleaning, shopping or long car rides for two weeks; 12 hours sleep daily for two weeks Additional Instructions: If you experience any of the following, contact your healthcare provider. Bleeding that soaks a pad every hour for 2 hours Fever 100.4 or higher Unrelieved incision or abdominal pain Swelling, redness, discharge or bleeding from your incision or episiotomy site Your incision begins to separate Problems urinating (including inability to urinate or burning while urinating). Visual changes Severe headache Flu-like symptoms Pain or redness in one of both of your breasts Pain, warmth, tenderness or swelling in your legs, especially the calf area Frequent nausea and vomiting Symptoms of depression or anxiety If you experience any of the following, call 911 or go to the nearest Emergency Room. Chest pain Problems breathing Seizure activity Partial or complete paralysis of a body part, slurred speech, weakness or drooping of the face, or a sudden inability to walk or hold your balance Allergies/Adverse Reactions: Allergies codeine Allergy (Mild, Verified 07/08/19 05:15) Other Medications to take at Discharge acetaminophen 325 mg capsule 325 mg PO Q6H PRN 12/06/18 vitamin#30 30 mg iron-10 mg iron-folic acid 1 mg-omg3 capsule 1 cap PO DAILY cap 12/06/18 Primary Care Physician: Care Physician,No Primary [Primary Care Provider] - Test Results: Test results from this visit will be discussed in further detail at your follow-up appointment, if applicable.
[2019-07-10] MEDS: Senna/Docusate Sodium 1 Tablet PO (09:56)
[2019-07-10 10:00] VITALS: BP 118/79; PULSE 94; RESP 16; TEMP 36.4
== END 2019-07-10 12:30 | disposition home or self-care (01) | DRG 806 ==
LOC: WPOUT 05:25
PROVIDERS: Nurse Practitioner Women's Health; Admitting Provider Advanced Practice Midwife; Referring Provider Advanced Practice Midwife; Visit Provider Advanced Practice Midwife
DX: O42.02 Full-term premature rupture of membranes, onset of labor within 24 hours of rupture (principal); O44.42 Low lying placenta NOS or without hemorrhage, second trimester; Z37.0 Single live birth; O70.0 First degree perineal laceration during delivery; O71.89 Other specified obstetric trauma; O24.420 Gestational diabetes mellitus in childbirth, diet controlled; O99.02 Anemia complicating childbirth; D64.9 Anemia, unspecified; O21.2 Late vomiting of pregnancy; Z3A.39 39 weeks gestation of pregnancy; Z28.21 Immunization not carried out because of patient refusal
CPT/HCPCS: 59025; 59050; 76815; 82962; 84112; 85025; 85027; 86850; 86900; 86901; 99218; J7120; G0378; J2405